=== PATIENT | male | born 1995 | race Two or more races ===

== ENCOUNTER 2019-01-10 06:36 | Emergency (ER) | payer BC ==
[~2019-01-10] VITALS: Ht 177.8 cm; Wt 70.3 kg
[2019-01-10 07:14] VITALS: BP 115/73
[2019-01-10] MEDS ORDERED: KETOROLAC TROMETH 60MG/2ML VIAL IM ONE (07:15)
[2019-01-10] MEDS ORDERED: METHOCARBAMOL 500 MG TAB PO ONE (07:15)
== END 2019-01-10 07:53 | disposition home or self-care (01) ==
LOC: ER 06:36
DX: S16.1XXA Strain of muscle, fascia and tendon at neck level, initial encounter (principal); X58.XXXA Exposure to other specified factors, initial encounter; Y93.89 Activity, other specified; Y99.8 Other external cause status; Y92.89 Other specified places as the place of occurrence of the external cause
CPT/HCPCS: 72125; 96372; 99284; J1885

== ENCOUNTER 2021-02-19 11:42 | Emergency (ER) | payer BC, OTHER ==
[~2021-02-19] VITALS: Ht 180.3 cm; Wt 79.4 kg
[2021-02-19 14:00] VITALS: BP 113/69
[2021-02-19] MEDS ORDERED: ONDANSETRON ODT 4 MG TAB PO ONE (15:00)
[2021-02-19] MEDS ORDERED: ACETAMINOPHEN/CODEINE#3 (300/30mg) TAB PO ONE (15:00)
== END 2021-02-19 15:37 | disposition home or self-care (01) ==
LOC: ER 11:42
DX: S16.1XXA Strain of muscle, fascia and tendon at neck level, initial encounter (principal); S70.11XA Contusion of right thigh, initial encounter; R51.9 Headache, unspecified; M79.631 Pain in right forearm; V49.49XA Driver injured in collision with other motor vehicles in traffic accident, initial encounter; Y93.89 Activity, other specified; Y92.488 Other paved roadways as the place of occurrence of the external cause; Y99.8 Other external cause status
CPT/HCPCS: 70450; 71046; 72125; 93005; Q0162